=== PATIENT | female | born 1970 | race Caucasian/White ===

== ENCOUNTER 2022-08-04 05:49 | Day surgery (SDC) | payer SELFPAY ==
[2022-07-24 11:07] LABS: Hematocrit 38.4 % (37-47); Hemoglobin 12.9 g/dL (12.0-15.0); Mean Corp Hgb Conc 33.6 g/dL (32-36); Mean Corpuscular Hgb 30.1 pg (27.0-32.0); Mean Corpuscular Volume 89.7 fL (81-99); Mean Platelet Vol. 8.6 fl (6.2-12.0); Platelet Count 242 K/mm3 (150-450); RBC Distribution Width CV 13.2 % (11.6-14.6); RBC Distribution Width SD 43.3 fl (35.1-43.9); Red Blood Count 4.28 M/mm3 (4.2-5.4); White Blood Count 7.8 K/mm3 (4.4-11.0)
[2022-07-24 11:21] LABS: Partial Thromboplast Time 27.3 Seconds (24.1-36.2)
[2022-07-24 11:39] LABS: AST(SGOT) 19 U/L (15-37); Alanine Aminotransfer ALT/SGPT 25 U/L (13-56); Albumin, Serum 3.4 g/dL (3.2-5.0); Alkaline Phosphatase 61 U/L (45-117); Bilirubin, Direct 0.09 mg/dL (0.00-0.30); Globulin 3.7 g/dL (2.2-4.2); Protein, Total 7.1 g/dL (6.4-8.2)
[2022-08-04] VITALS (8 sets, daily range): BP systolic 97–166; BP diastolic 55–71; PULSE 69–92; RESP 16–18; TEMP 36–36.8; O2SAT 96–100; BMI 40.9
[2022-08-04] MEDS: Lactated Ringers 1,000 ML 15 ML IV ×2 (06:34→08:46)
[2022-08-04 06:36] LABS: Internal QC Validated? YES +Cl - CLEAR BKGD; Pregnancy, Urine Negative Negative
--- NOTE | 2022-08-04 07:01 | HP.PCM.OB_ITS ---
History and Physical Date of Admission: 08/04/22 HPI: Risk denies headache or vision changes, chest pain or shortness of breath, nausea or vomiting, fevers or chills, diarrhea or constipation, rashes. 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 section 2 Foraminectomy, bulging discs/bone spurs No issues with anesthesia in the past Allergies: No known drug allergies Medications: 1. Essential enzyme 2. Ninja Red 3. Sulfurzyme Social history: Denies tobacco, alcohol, drug use Family history: Noncontributory Review of system: Negative otherwise stated above Physical exam BP 150/71, heart rate 88, respiratory rate 18, temp 97.8 ?F, oxygen saturation 99% on room air General: No acute distress Cardiac: Regular rate and rhythm Lungs: Clear to auscultation bilaterally Abdomen: Soft, nontender Extremities: No edema Neurologic: Cranial nerves II through XII grossly intact, no focal deficits Musculoskeletal: Strength out of 5 throughout all extremities Assessment/plan: 52-year-old female with stress urinary incontinence and cystocele and labial cyst plan for anterior repair, retropubic sling, excision of labial cyst., Benefits, alternatives discussed with the patient. Risks include but are not limited to: Risk of bleeding the point transfusion, infection, injury to surrounding tissue including bowel/bladder potentially requiring prolonged Cornejo catheter use, VTE, ICU admission. Patient aware of risk of urinary retention, mesh erosion. Consented.
[2022-08-04] MEDS: Cefazolin 2 GM in 0.9% Normal Saline 100 ML IV (07:30)
--- NOTE | 2022-08-04 07:30 | CYST_PTH ---
PATIENT: PROMISE NGUYEN LOC: [facility] – [place] U#:[id number] AGE/SX: 52/F ROOM: RE08/04/[address]: Dr. Haley Osborne, : 1970 BED: DIS: 08/04/2022 SPEC #: [id number] RECD: 08/04/22 12:17 STATUS: JAISON EDMUND #: [id number] RAJWINDER: 08/04/22 07:[address]: Haley Osborne DEPT: SURGICAL PATHOLOGY RECD BY: Sara Keller ENTERED: 08/04/22 12:59 SP TYPE: Cyst OTHR DR: Christina Quinn, ASSISTANT AT SURGERY-C Tissues: CYST Procedures: Surgery Specimen Level III HEADER OPERATION: Cystoscopy, TVT sling, excision of labial cyst PRE-OP DIAGNOSIS: Stress urinary incontinence, cystocele, labial cyst TISSUE SUBMITTED: Labial cyst wall MICROSCOPIC DIAGNOSIS Labial cyst wall, biopsy: Epidermal inclusion cyst. BETTE:deborah 08/05/2022 MICROSCOPIC DESCRIPTION Slides are reviewed. GROSS DESCRIPTION Received in fixative is one container labeled with the patient's name and designated labial cyst wall. The specimen consists of a piece of skin with underlying tissue measuring 1.5 x 1.0 x 0.5 cm. The specimen is inked, serially sectioned and submitted entirely in one cassette. Also present in the container are a few fragments of ford, amorphous material measuring in aggregate 0.5 x 0.3 x 0.1 cm. The entire specimen is submitted in two cassettes as follows: 1 ? skin piece, 2 ? amorphous material. / SJ:deborah 08/04/2022 TC:5 CPT: 56669
[2022-08-04] MEDS: Lidocaine 1% (30 ml sdv) 30 ML Vial (07:53)
--- NOTE | 2022-08-04 09:16 | OP.PCM_ITS ---
Report of Operation Date of Procedure: 08/04/22 Pre-Operative Diagnosis: Left labial cyst, stress urinary incontinence, anterior prolapse Post-Operative Diagnosis: Left labial cyst, stress urinary incontinence, grade I anterior prolapse Surgery/Procedure Performed:: Excision of left labial cyst, retropubic sling, cystoscopy Description of Surgical Findings:: 3 cm left labial cyst, firm, filled with sebaceous material. Normal-appearing c ervix. Minimal grade 1 anterior prolapse. Type of Anesthesia: General Specimen's removed: Labial cyst wall Estimated Blood Loss (mL): 100 cc Fluids Replaced: 1400 cc Description of Procedure: Indications/risk/benefits: Procedure: Patient taken the operating room placed under general anesthesia. Patient placed in the dorsal lithotomy position prepped and draped in the usual sterile fashion. Cornejo catheter placed. Left labia incised with scalpel and elliptical incision was made with removal of small portion of labial skin, exposing the cyst. Labial cyst was excised in total using Metzenbaum scissors and blunt dissection. Labial skin closed with a running stitch. Hemostatic. Weighted speculum placed in posterior vagina and anterior wall of the vagina inspected noting findings above. Decision not to do an anterior pair was made due to mild prolapse and close proximity to sling dissection. Midline pubic bone marked abdominally as well as sling trocar sites 1 cm laterally to midline. Vagina marked 1 cm below urethral meatus and 1-1/2 cm in length. Vaginal mucosa grasped with Allis clamps. Injection of 1% Xylocaine completed. Vaginal mucosa incised sagittally with scalpel. Dissection bilaterally of vaginal mucosa completed using Metzenbaum scissors and blunt dissection. With dissection palpation of pubic bone through vaginal mucosa bilaterally was noted. Catheter was removed and stylette placed in the catheter. Mesh was placed along trocar for placement of left side. Bladder directed away using catheter and stylette. Trocar placed through vaginal mucosa, directly behind pubic bone, through anterior abdominal skin at the level of the pubic bone. Trocar removed. Right mesh edge attached to trocar, confirming flat and nontwisting of mesh. Bladder directed away using catheter and stylette. Trocar placed through right dissection bed, directly behind pubic bone, and through the anterior abdominal skin at the level of the pubic bone. Trocar removed. Catheter removed. Cystoscopy completed noting intact bladder dome, bilateral ureteral orifices, no puncture of bladder noted no mesh noted. Catheter replaced. Zaira clamp placed between urethra and mesh and mesh covering removed bilaterally, mesh pulled to appropriate tension. Hemostasis with Bovie and Floseal. Vaginal mucosa closed. Some extension of left vaginal mucosa laterally was noted, this was closed with a running stitch. Sagittal vaginal incision closed with a running locking stitch. Hemostasis noted. Mesh cut at the pubic sites at the level of the skin. Skin covering mesh, closed with skin glue. At the end of the procedure all needle, Lap, sponge counts were correct. UOP: 500cc clear urine For voiding trial prior to discharge. Complications None
--- NOTE | 2022-08-04 09:27 | DCINST_ITS ---
Discharge Instructions Diet Discharge Diet: No restrictions Activity Discharge Activity: Return to Normal Activity and May Shower May resume sexual activity in: 6 weeks Weight Bearing Status: Weight bearing as tolerated Lifting Restrictions: No greater than 10 pounds for 4 weeks Dressing / Incision Call your doctor if your incision/area has: Continuous Slow Oozing, Increased Pain/ Swelling, Increased Redness, Foul Smelling Discharge and Swelling at the incision site Call your doctor if you observe: Fever of 101 or Higher, Change in Color, Inability to urinate, Using more than 1 pad per hour, Shortness of breath, Dizziness, Swelling in the ankles, Chest pain and Calf discomfort Cleanse incision/area with: Soap & Water and Keep Dressing Clean & Dry Follow Up Care Please Follow Up With: Haley Osborne DO When: 1-2 week postoperative visit Test Results: Test results from this visit will be discussed in further detail at your follow- up appointment, if applicable. Discharge Plan Admission Primary Reason for Your Visit: Bladder sling Attending Provider: Haley Osborne Primary Care Provider: Christina Quinn NP Discharge Orders/Prescriptions Prescriptions: New oxycodone 5 mg tablet 5 mg PO Q6H PRN (Reason: pain (scale score 7-10)) 4 Days Qty: 14 0RF Continued Essential Enzyme 1 cap PO/SL BID Ninja Red 2 oz PO/SL DAILY Sulfurzyne 2 - 8 tab PO/SL DAILY Referrals / Follow Up: Christina Quinn NP, TOBACCO PREVENTION HEALTH EDUCATOR-C [Primary Care Provider] - Disposition Disposition (needs filled in before D/C Order can be placed): Home, Self Care
[2022-08-04] MEDS: Acetaminophen 500 MG Tablet 1000 MG PO (12:52)
== END 2022-08-04 15:51 | disposition home or self-care (01) ==
LOC: SDC 05:53 → AC 05:53
PROVIDERS: Anesthesiology; PCP Nurse Practitioner Family; Referring Provider Student in an Organized Health Care Education/Training Program; Visit Provider Student in an Organized Health Care Education/Training Program
PROC: (CPT 57260; principal; 2022-08-04 07:15)
DX: N39.3 Stress incontinence (female) (male) (principal); N90.7 Vulvar cyst; R23.3 Spontaneous ecchymoses
CPT/HCPCS: 57288; 57135; 52000; 00860; 36415; 80076; 81025; 85027; 85610; 85730; 86850; 86900; 86901; 88304; J7120; J2405; Q9968